=== PATIENT | male | born 1940 | race Caucasian/White ===

== ENCOUNTER 2017-02-20 15:45 | Inpatient (IN) | payer MEDICARE ==
[~2017-02-20] VITALS: Ht 182.9 cm; Wt 62.6 kg
[~2017-02-20 15:45] MED LIST: ASPI81TA31 PO; ATOR10TA PO; GADOVERSETAMIDE 2.5 MMOL/5 ML VIAL ONE; LISI-603 PO; TUMS PO
--- NOTE | 2017-02-20 16:05 | NUR ---
DR Knapp at the bedside for eval and exam.
--- NOTE | 2017-02-20 16:10 | NUR ---
pt down to CT.
[2017-02-20 16:52] LABS: BASOPHILS # (AUTO) 0.2 K/uL (0.0-8.0); EOSINOPHILS % (AUTO) 0.2 % (0.0-7.0); HEMATOCRIT 48.9 % (40-50); HEMOGLOBIN 15.9 G/DL (14.0-18.0); LYMPHOCYTES # (AUTO) 1.1 K/UL (0.8-4.8); LYMPHOCYTES % (AUTO) 10.1 % (20.5-51.5); MEAN CORPUSCULAR HEMOGLOBIN 29.4 UUG (27.0-31.0); MEAN CORPUSCULAR HGB CONC 32 g/dL (32.0-37.0); MEAN CORPUSCULAR VOLUME 90.8 FL (82.0-92.0); MONOCYTES # (AUTO) 0.6 K/UL (0.1-1.30); MONOCYTES % (AUTO) 5.2 % (0.0-11.0); NEUTROPHILS # (AUTO) 9.2 K/UL (1.8-8.9); NEUTROPHILS % (AUTO) 82.5 % (38.5-71.5); PLATELET COUNT (AUTO) 180 K/UL (150-450); RED BLOOD CELL COUNT(AUTO) 5.38 MIL/UL (4.7-6.1); WHITE BLOOD COUNT (AUTO) 11.1 K/UL (4.0-11.2)
[2017-02-20 17:17] LABS: ALANINE AMINOTRANSFERASE 16 U/L (16-63); ALKALINE PHOSPHATASE 46 U/L (50-136); ASPARTATE AMINOTRANSFERASE 22 U/L (15-37); BILIRUBIN,DIRECT 0.5 mg/dL (0.0-0.2); BILIRUBIN,TOTAL 2.2 mg/dL (0.2-1.0); CARBON DIOXIDE 26 mmol/L (21-32); CHLORIDE 103 mmol/L (98-107); CREATININE 1.2 mg/dL (0.6-1.3); GLUCOSE 98 mg/dL (74-106); POTASSIUM 3.8 mmol/L (3.5-5.1); TOTAL PROTEIN, SERUM 7.5 g/dL (6.4-8.2); UREA NITROGEN, BLOOD 35 mg/dL (7-18)
--- NOTE | 2017-02-20 17:22 | NUR ---
belonging list completed by inder suarez, pt not candidate for mrsa.
--- NOTE | 2017-02-20 17:26 | NUR ---
DASHA HUANG CALLED Address: [address] [place] [address] NO MEDS AVAILABE
--- NOTE | 2017-02-20 17:40 | NUR ---
Pt removed HL. Catheter in.act and site benign. Pressure and 4x4 gauze applied to site. No bleeding noted.
[2017-02-20] MEDS ORDERED: DEXAMETHASONE SOD PHOSPHATE 4 MG INJ IV ONE (18:30)
--- NOTE | 2017-02-20 18:51 | NUR ---
PT RECEIVED FROM ER VIA [facility] TO ROOM 223 IN STABLE CONDITION,
[2017-02-20] MEDS ORDERED: IV 1/2NS 1000 ML 1,000 ML IV PRN (18:56)
[2017-02-20] MEDS ORDERED: MAGNESIUM HYDROXIDE 30 ML LIQUID UDC PO PRN (19:00)
[2017-02-20] MEDS ORDERED: HYDROCODONE/APAP 5-325MG TABLET PO PRN (19:00)
[2017-02-20] MEDS ORDERED: ACETAMINOPHEN 325 MG TABLET PO PRN (19:00)
[2017-02-20] MEDS ORDERED: ONDANSETRON 4 MG/2 ML VIAL IV PRN (19:00)
[2017-02-20] MEDS ORDERED: Z GUARD REMEDY PASTE 57 GM TUBE TOP PRN (19:00)
--- NOTE | 2017-02-20 19:30 | NUR ---
RECEIVED PT IN BED, AWAKE, CONFUSED. IN NO ACUTE SIGNS OF DISTRESS. INITIATED ADMISSION ASSESSMENT. CALL LIGHT WITHIN REACH. SAFETY OBSERVED.
--- NOTE | 2017-02-20 20:00 | NUR ---
MELA RASHID NP AWARE THAT PT HAS NO FAMILY MEMBER TO GIVE CONSENT FOR MRI BRAIN W/WO CONTRAST: 'PROCEDURE MEDICALLY NECESSARY'. CONSENT WITNESSED BY STAFF AND CHARGE NURSE.
[2017-02-20 20:26] VITALS: BP 111/78
--- NOTE | 2017-02-20 20:45 | NUR ---
LEFT FOR MRI BRAIN VIA [facility].
[2017-02-20] MEDS ORDERED: ATORVASTATIN 10 MG TABLET PO SCH (21:00)
--- NOTE | 2017-02-20 22:02 | NUR ---
PT CAME BACK FROM MRI BRAIN.
[2017-02-21] VITALS: BP 127/81
[2017-02-21] MEDS: DEXAMETHASONE SOD PHOSPHATE 4 MG INJ IV SCH ×2 (00:07→05:29)
[2017-02-21 04:00] VITALS: BP 123/80
--- NOTE | 2017-02-21 05:51 | NUR ---
PT SLEPT INTERMITTENTLY. IN NO ACUTE SIGNS OF DISTRESS. IVF INFUSING. SAFETY MAINTAINED THROUGHOUT SHIFT. BED ALARM ON. CALL LIGHT WITHIN REACH.
[2017-02-21 06:40] LABS: BASOPHILS % (AUTO) 0.2 % (0.0-2.0); EOSINOPHILS # (AUTO) 0.1 K/uL (0.0-0.7); EOSINOPHILS % (AUTO) 0.7 % (0.0-7.0); HEMATOCRIT 48.6 % (40-50); LYMPHOCYTES # (AUTO) 0.8 K/UL (0.8-4.8); MEAN CORPUSCULAR HEMOGLOBIN 30.3 UUG (27.0-31.0); MEAN CORPUSCULAR HGB CONC 33 g/dL (32.0-37.0); MONOCYTES # (AUTO) 0.1 K/UL (0.1-1.30); MONOCYTES % (AUTO) 0.9 % (0.0-11.0); NEUTROPHILS # (AUTO) 6.8 K/UL (1.8-8.9); NEUTROPHILS % (AUTO) 88.2 % (38.5-71.5); PLATELET COUNT (AUTO) 160 K/UL (150-450); RED BLOOD CELL COUNT(AUTO) 5.28 MIL/UL (4.7-6.1); WHITE BLOOD COUNT (AUTO) 7.8 K/UL (4.0-11.2)
[2017-02-21] MEDS ORDERED: PANTOPRAZOLE SODIUM 40 MG TABLET.DR PO SCH (07:00)
--- NOTE | 2017-02-21 07:15 | NUR ---
PT AWAKE IN BED, IN NO ACUTE DISTRESS, ABLE TO STATE NAME HOWEVER WHEN ASKED WHERE THE PT IS, THE PATIENT BEGAN TO SPELL HIS NAME. I ASKED AGAIN "DO YOU KNOW WHERE YOU ARE AT" PT SAID"YES" I SAID "TELL ME WHERE" AND THE PT BEGAN TO SPELL HIS NAME AGAIN. PT NPO FOR PROCEDURE WILL CONTINUE TO MONITOR
[2017-02-21 07:16] LABS: THYROID STIMULATING HORMONE 1.083 mIU/mL (0.358-3.740)
[2017-02-21 07:26] LABS: ALANINE AMINOTRANSFERASE 14 U/L (16-63); ALKALINE PHOSPHATASE 45 U/L (50-136); ASPARTATE AMINOTRANSFERASE 24 U/L (15-37); BILIRUBIN,TOTAL 1.7 mg/dL (0.2-1.0); CARBON DIOXIDE 27 mmol/L (21-32); CHLORIDE 103 mmol/L (98-107); CREATININE 1.1 mg/dL (0.6-1.3); GLUCOSE 129 mg/dL (74-106); PHOSPHOROUS 3.9 mg/dL (2.5-4.9); POTASSIUM 4.1 mmol/L (3.5-5.1); TOTAL PROTEIN, SERUM 7.4 g/dL (6.4-8.2); UREA NITROGEN, BLOOD 32 mg/dL (7-18)
[2017-02-21 08:17] LABS: CHOLESTEROL 147 mg/dL (<200); HDL CHOLESTEROL 57 mg/dL (40-60); TRIGLYCERIDES 50 MG/DL (30-150)
[2017-02-21] MEDS ORDERED: IV NORMAL SALINE 250 ML IV ONE (08:34)
[2017-02-21] MEDS ORDERED: IOHEXOL 300MG/ML 100 ML INFUS..BTL ONE (08:34)
[2017-02-21] MEDS ORDERED: LISINOPRIL 20 MG TABLET PO SCH (09:00)
[2017-02-21] MEDS ORDERED: LEVETIRACETAM IV 500 MG in IV DEXTROSE 5% 100 ML IV SCH (10:00)
[2017-02-21] MEDS ORDERED: DEXA4VIA17 IV (10:02)
[2017-02-21] MEDS ORDERED: LEVE500T9 IV (10:02)
[2017-02-21 11:54] VITALS: BP 151/92
--- NOTE | 2017-02-21 12:15 | NUR ---
Discharge Plan: Patient will be transferred to [facility] [[address] [place], [place] [id number] ]. Henri [([phone]] from the Transfer Center confirmed the patient admission. Dr. Real is the accepting physician. Patient's room number is 4416. RN can call to give report . 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 Patient and Peter [[phone]] are aware and agreeable with transfer. Charge nurse, Anurag, made aware.
--- NOTE | 2017-02-21 13:34 | NUR ---
DISCHARGE PROTOCOL FOLLOWED, PT NON VERBAL BUT ABLE TO FOLLOW COMMANDS. ALL BELONGINGS ACCOUNTED FOR AND SENT WITH PT. PT LEFT VIA GURNEY WITH EMS STAFF.
== END 2017-02-21 13:30 | disposition short-term general hospital (02) | DRG 54 ==
LOC: ER 15:57 → TELE 18:29
DX: D43.0 Neoplasm of uncertain behavior of brain, supratentorial (principal); G93.6 Cerebral edema; G91.1 Obstructive hydrocephalus; R47.01 Aphasia; R22.0 Localized swelling, mass and lump, head; Z86.73 Personal history of transient ischemic attack (TIA), and cerebral infarction without residual deficits; E78.5 Hyperlipidemia, unspecified; R91.1 Solitary pulmonary nodule; I10 Essential (primary) hypertension; F17.200 Nicotine dependence, unspecified, uncomplicated; Z79.82 Long term (current) use of aspirin; Z79.899 Other long term (current) drug therapy; R41.82 Altered mental status, unspecified
CPT/HCPCS: 36415; 70030-TC; 70450; 70553; 71010; 71260; 72193; 74160; 83605; 84100; 84443; 85025; 85730; 87040; 93005; A4663; A9579; J1100; J1953; J3490; J7050; J7060; Q9967